=== PATIENT | female | born 1975 | race African-American/Black ===

== ENCOUNTER 2018-12-03 13:13 | Day surgery (SDC) | payer BC ==
[2018-11-29 10:52] VITALS: BMI 28.8
[2018-12-03] MEDS ORDERED: oxyCODONE HCL 5 MG TABLET PO PRN ×2 (15:20)
[2018-12-03] MEDS ORDERED: ONDANSETRON 4 MG/2 ML VIAL IVPUSH PRN (15:20)
[2018-12-03] MEDS ORDERED: LACTATED RINGERS SOLUTION 1,000 ML IV SCH (15:30)
[2018-12-03] MEDS ORDERED: MIDAZOLAM HCL 2 MG/2 ML SINGLE DOSE VIAL ONE (15:43)
[2018-12-03] MEDS ORDERED: PROPOFOL 20 ML ONE (15:51)
[2018-12-03] MEDS ORDERED: DEXAMETHASONE SOD PHOSPHATE 4 MG/1 ML VIAL ONE (15:51)
[2018-12-03] MEDS ORDERED: ONDANSETRON 4 MG/2 ML VIAL ONE ×2 (15:51→16:41)
[2018-12-03] MEDS ORDERED: LIDOCAINE HCL/PF 2% SDV 5ML VIAL ONE (15:51)
[2018-12-03] MEDS ORDERED: ceFAZolin SODIUM 1 GM VIAL ONE (15:57)
--- NOTE | 2018-12-03 16:52 | PN ---
Progress Note (short form) - Note Progress Note: 43F s/p open right 1st trigger finger (IE thumb) & right open carpal tunnel release POD #0. -Pain control. -Incentive spirometry. -NWB RUE. -Keep dressing clean & dry. -Percocet, Duexis ordered to pharmacy for analgesia; OK to use OTC NSAID's instead. -Elevate wrist/hand above level of heart. -Discharge home: f/u [facility] [place] Office Thu12/10/2018; call for appointment: . Mario Duval MD (Orthopaedic Surgery).
--- NOTE | 2018-12-03 16:56 | OP ---
Operative Note - Note: Operative Date: 12/03/18 Pre-Operative Diagnosis: Right 1st trigger finger (IE thumb). Right carpal tunnel syndrome Operation: 1. Open right 1st trigger finger (IE thumb) release. 2. Right open carpal tunnel release Post-Operative Diagnosis: Same as Pre-op Surgeon: Mario Duval Anesthesiologist/CONTROL OFFICER: Romeo Thomas Anesthesia: General Estimated Blood Loss (mls): 0 Fluid Volume Replaced (mls): 500 (Crystalloid) Operative Report Dictated: Yes
[2018-12-03] MEDS ORDERED: KETOROLAC TROMETHAMINE 30 MG/1 ML VIAL IVPUSH ONE ×2 (16:58→17:00)
[2018-12-03] MEDS ORDERED: DEXAMETHASONE SOD PHOSPHATE 4 MG/1 ML VIAL IVPUSH ONE ×2 (16:59→17:03)
[2018-12-03 18:04] VITALS: BP 134/90; PULSE 74; TEMP 97.9
[2018-12-03] MEDS ORDERED: ATORVASTATIN CA 40 MG TABLET (FP) PO SCH (22:00)
[2018-12-03] MEDS ORDERED: GABAPENTIN 400 MG CAPSULE (FP) PO SCH (22:00)
[2018-12-03] MEDS ORDERED: PATIENT'S OWN MEDICATION (NON-FORMULARY) (Oxycodone Hcl [Oxycodone Hcl] 30 MG) PO SCH (22:00)
--- NOTE | 2018-12-04 09:11 | OP ---
DATE OF OPERATION: SURGEON: Mario Duval MD DOCUMENT REVIEWER: Nursing staff at [facility] PREOPERATIVE DIAGNOSES: 1. Right trigger thumb. 2. Right carpal tunnel syndrome. POSTOPERATIVE DIAGNOSES: 1. Right trigger thumb. 2. Right carpal tunnel syndrome. OPERATION PERFORMED: 1. Right trigger thumb release. 2. Right carpal tunnel release. ANESTHESIA: General. ANTIBIOTICS GIVEN: 2 g Kefzol. DESCRIPTION OF PROCEDURE: With the patient in supine position, the right upper extremity was prepped and draped in the routine manner with Betadine scrub solution, wiped off with alcohol, DuraPrep applied. A free drape was applied in a bloodless field. We started with the carpal tunnel in the primary crease of the palm. The incision was made from the volar on transverse crease of the wrist to the line transversely across the palm from the base of the web of the thumb index finger. This incision was just short of that exact point. The tissues were opened. Subcutaneous tissue incised longitudinally. I split the palmar aponeurosis, which took me directly down to the flexor retinaculum, and the transverse fibers were readily identified. Using a 15 blade, the transverse retinaculum ligament was incised and then placing a Woden to separate the undersurface of the ligament from the remaining content of the carpal tunnel, a Metzenbaum scissors was placed and split further the transverse retinaculum to the level beyond the wrist into the forearm to free the entire structure completely. This was performed in a way to avoid the superficial branch of the palmar nerve or the median nerve. The distal dissection also was facilitated with Metzenbaum scissors freeing the entire carpal tunnel. This wound was then closed separately with nylon vertical mattress sutures. The 2nd component of the operation comprised of an incision made at the volar thumb metacarpal crease transverse incision. The nerves were not identified. They were not seen. Retractors were placed medially and laterally to keep the nerves out of harm's way. The bulbous mass of the flexor pollicis longus tendons were identified, easily palpable and noted. An incision was made into the tunnel sheath, and the A1 malia was then transected, and the entire tendon mass was freed appropriately. The wounds were lavaged and closed with 3-0 interrupted nylon sutures. No complications. A bulky dressing was applied. MD DAVID [id number]
[2018-12-04] MEDS ORDERED: ESTRADIOL 0.5 MG PO SCH (10:00)
== END 2018-12-03 17:50 | disposition home or self-care (01) ==
LOC: FASU 13:13
PROVIDERS: ATTEND Orthopaedic Surgery Orthopaedic Surgery of the Spine
PROC: 01N50ZZ Release Median Nerve, Open Approach (ICD-10-PCS; principal; 2018-12-03 16:08)
PROC: 0LN70ZZ Release Right Hand Tendon, Open Approach (ICD-10-PCS; 2018-12-03 16:08)
DX: G56.01 Carpal tunnel syndrome, right upper limb (principal); M65.311 Trigger thumb, right thumb
CPT/HCPCS: 84703; 94760